=== PATIENT | male | born 1995 | race Caucasian/White ===

== ENCOUNTER 2017-07-30 18:56 | Emergency (ER) | payer BC ==
--- NOTE | 2017-07-30 19:29 | Emergency Department Record ---
History of Present Illness - General Chief complaint: Rash Stated complaint: SORES ALL OVER Time Seen by Provider: 07/30/17 19:25 Source: Patient Mode of Arrival: Ambulatory Limitations: No limitations - History of Present Illness Initial comments: 21 yo male presents to ED with a 4-5 day history of numerous ulcerations to the upper extremities, face, and neck. Patient states the lesions start off as red bumps and then ulcerate, reports approximately 20 lesions total, (2 face, 1 Neck ), others are scattered to the UEs bilaterally. 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 Patient denies health problems at her baseline. MD complaint: Lesion Onset/Timin -: Days(s) Location: Face, Neck, LUE, RUE Severity scale (1-10): 1 Quality: Aching Consistency: Constant Improves with: None Worsens with: None Context: None Associated symptoms: Denies other symptoms Treatments Prior to Arrival: OTC topical medication - Related Data Previous Rx's Medication Instructions Recorded Epinephrine [Epipen] 0.3 mg IM DAILY PRN #1 syr 07/14/16 Clindamycin HCl 300 mg PO Q6H #40 capsule 07/30/17 Allergies Allergy/AdvReac Type Severity Reaction Status Date / Time No Known Drug Allergies Allergy Verified 07/14/16 16:56 Travel Screening - Travel/Exposure Within Last 30 Days Have you traveled within the last 30 days?: No - Travel Symptoms Symptom Screening: None Review of Systems Constitutional: Denies: Chills, Fever, Malaise, Night sweats Eyes: Denies: Eye discharge, Eye pain ENT: Denies: Congestion, Ear pain, Epistaxis Respiratory: Denies: Cough, Dyspnea Cardiovascular: Denies: Chest pain, Dyspnea on exertion Endocrine: Denies: Fatigue, Heat or cold intolerance Gastrointestinal: Denies: Abdominal pain, Nausea, Vomiting Genitourinary: Denies: Incontinence, Retention Musculoskeletal: Denies: Arthralgia, Back pain, Gout, Joint swelling Skin: Reports: Lesions. Denies: Bruising, Change in color, Change in hair/nails Neurological: Denies: Abnormal gait, Confusion, Headache, Seizure Psychiatric: Denies: Anxiety Hematological/Lymphatic: Denies: Anemia, Blood Clots Past Medical History - SOCIAL HISTORY Smoking Status: Current every day smoker - RESPIRATORY Hx Respiratory Disorders: No - CARDIOVASCULAR Hx Cardio Disorders: No Hx Irregular Heartbeat: Yes (just feels it no work up) - NEURO Hx Neuro Disorders: No - GI Hx GI Disorders: No - Hx Genitourinary Disorders: No - ENDOCRINE Hx Endocrine Disorders: No - MUSCULOSKELETAL Hx Musculoskeletal Disorders: No - PSYCH Hx Psych Problems: Yes Hx Anxiety: Yes - HEMATOLOGY/ONCOLOGY Hx Hematology/Oncology Disorders: No Family Medical History Any Significant Family History?: Yes Family Hx Comment (NOT TO BE USED IN PLACE OF ITEMS BELOW): uncle w/brain aneurysm Hx Cancer: Grandparents Physical Exam - General General Appearance: Alert, Oriented x3, Cooperative, No acute distress Limitations: No limitations - Head Head exam: Atraumatic, Normocephalic, Normal inspection Head exam detail: negative: Abrasion, Contusion, Toussaint's sign, General tenderness, Hematoma, Laceration - Eye Eye exam: Normal appearance. negative: Conjunctival injection, Periorbital swelling, Periorbital tenderness, Scleral icterus - ENT Ear exam: negative: Auricular hematoma, Auricular trauma Nasal Exam: negative: Active bleeding, Discharge, Dried blood, Foreign body Mouth exam: negative: Drooling, Laceration, Muffled voice, Tongue elevation - Neck Neck exam: Normal inspection. negative: Meningismus, Tenderness - Respiratory Respiratory exam: Normal lung sounds bilaterally. negative: Rales, Respiratory distress, Rhonchi, Stridor - Cardiovascular Cardiovascular Exam: Regular rate, Normal rhythm, Normal heart sounds - GI/Abdominal GI/Abdominal exam: Soft. negative: Rebound, Rigid, Tenderness - Rectal Rectal exam: Deferred - exam: Deferred - Extremities Extremities exam: Other (Numerous ulcerated lesions c/w possible folliculitis present to the upper extremties bilaterally, (2) face, (1) neck.). negative: Calf tenderness, Pedal edema, Tenderness - Back Back exam: Denies: CVA tenderness (R), CVA tenderness (L) - Neurological Neurological exam: Alert, Normal gait, Oriented X3 - Psychiatric Psychiatric exam: Normal affect, Normal mood - Skin Skin exam: Normal color. negative: Abrasion Type of lesion: negative: abrasion Course Vital Signs 07/30/17 19:17 Temperature 99.2 F Pulse Rate 79 Respiratory 18 Rate Blood Pressure 124/77 Pulse Ox 98 - Reevaluation(s) Reevaluation #1: 07/30/17 19:33 Examination appears c/w bacterial overgrowth to the skin, possible folliculitis. Will trial Clindamycin to prevent new lesions from occurring and instruct the patient to follow-up with his PCP in 3-5 days as directed. Disposition Disposition: Discharge Clinical Impression: Skin lesions, generalized Disposition: Home, Self-Care Condition: (2) Stable Instructions: Folliculitis (ED) Additional Instructions: Return to ED if your symptoms worsen or if you have any concerns. Clindamycin as directed. Follow-up with your family doctor in 3-5 days as directed. Prescriptions: Clindamycin HCl 300 mg PO Q6H #40 capsule Forms: Patient Portal Access Time of Disposition: 19:29 Quality - Quality Measures Quality Measures: N/A - Blood Pressure Screening Does Patient Have Any of the Following: No Blood Pressure Classification: Pre-Hypertensive BP Reading Systolic Measurement: 124 Diastolic Measurement: 77 Screening for High Blood Pressure: < Pre-Hypertensive BP, F/U Documented > [ G8950] Pre-Hypertensive Follow-up Interventions: Referral to alternative/primary care provider.
== END 2017-07-30 19:36 | disposition home or self-care (01) ==
LOC: ER 18:56
DX: L98.8 Other specified disorders of the skin and subcutaneous tissue (principal)
CPT/HCPCS: 99282

== ENCOUNTER 2017-08-13 14:11 | Emergency (ER) | payer BC ==
--- NOTE | 2017-08-13 14:44 | Emergency Department Record ---
History of Present Illness - General Chief complaint: Rash Stated complaint: RASH Time Seen by Provider: 08/13/17 14:36 Source: Patient Mode of Arrival: Ambulatory Limitations: No limitations - History of Present Illness Initial comments: The patient is here for a recheck of a rash. He recently was diagnosed with skin MRSA and did receive oral and topical abx's. Now he is here due to developing itchy red spots on his arms, legs and trunk for 3 days. He denies any new medicines or foods and does not have any new pets. He also denies any trouble swallowing or breathing. MD complaint: Rash Onset/Timin -: Week(s) Consistency: Constant Associated symptoms: Itching Treatments Prior to Arrival: Antibiotic, Other - Related Data Home Medications Medication Instructions Recorded Confirmed Last Taken Mupirocin [Bactroban] 1 apply TOP ASDIR 08/13/17 08/13/17 08/13/17 Previous Rx's Medication Instructions Recorded Epinephrine [Epipen] 0.3 mg IM DAILY PRN #1 syr 07/14/16 Prednisone [Prednisone 20Mg] 20 mg PO ASDIR #15 tab 08/13/17 Allergies Allergy/AdvReac Type Severity Reaction Status Date / Time No Known Drug Allergies Allergy Verified 07/14/16 16:56 Travel Screening - Travel/Exposure Within Last 30 Days Have you traveled within the last 30 days?: No - Travel/Exposure Within Last Year Have you traveled outside the [place] in the last year?: No - Additonal Travel Details Have you been exposed to anyone with a communicable illness?: No - Travel Symptoms Symptom Screening: None Review of Systems Constitutional: Denies: Chills, Fever Eyes: Denies: Eye discharge ENT: Denies: Congestion Respiratory: Denies: Cough, Dyspnea Past Medical History - SOCIAL HISTORY Smoking Status: Current every day smoker Alcohol Use: Occasional Drug Use: None - RESPIRATORY Hx Respiratory Disorders: No - CARDIOVASCULAR Hx Cardio Disorders: No Hx Irregular Heartbeat: Yes (just feels it no work up) - NEURO Hx Neuro Disorders: No - GI Hx GI Disorders: No - Hx Genitourinary Disorders: No - ENDOCRINE Hx Endocrine Disorders: No - MUSCULOSKELETAL Hx Musculoskeletal Disorders: No - PSYCH Hx Psych Problems: Yes Hx Anxiety: Yes - HEMATOLOGY/ONCOLOGY Hx Hematology/Oncology Disorders: No Family Medical History Any Significant Family History?: No Family Hx Comment (NOT TO BE USED IN PLACE OF ITEMS BELOW): uncle w/brain aneurysm Hx Cancer: Grandparents Physical Exam - General General Appearance: Alert, Cooperative, No acute distress - Head Head exam: Atraumatic, Normocephalic, Normal inspection - Eye Eye exam: Normal appearance, PERRL - ENT Throat exam: Normal inspection. negative: Tonsillar erythema, Tonsillar exudate - Neck Neck exam: Normal inspection, Full ROM. negative: Tenderness - Respiratory Respiratory exam: Normal lung sounds bilaterally. negative: Respiratory distress - Cardiovascular Cardiovascular Exam: Regular rate, Normal rhythm, Normal heart sounds - Extremities Extremities exam: Full ROM. negative: Normal inspection (There are erythematous nontender papules to the arms and legs and trunk scattered about. They are very itchy. They do not appear to be MRSA and appear to be bites of some kind.), Tenderness Course Vital Signs 08/13/17 14:18 Temperature 97.5 F L Pulse Rate 66 Respiratory 16 Rate Blood Pressure 127/83 Pulse Ox 100 - Reevaluation(s) Reevaluation #1: I did explain to the patient we will be treating him for an allergix rxn. He is to see his PCP next week for recheck. 08/13/17 14:43 Disposition Disposition: Discharge Clinical Impression: Skin lesions, generalized Disposition: Home, Self-Care Condition: (1) Good Instructions: Acute Rash (ED) Additional Instructions: Please use an OTC antihistamine for itching and take the Prednisone as directed. Please see your PCP next week for recheck. Return to the ER if worse. Prescriptions: Prednisone [Prednisone 20Mg] 20 mg PO ASDIR #15 tab Forms: Patient Portal Access Time of Disposition: 14:44 Quality - Quality Measures Quality Measures: N/A - Blood Pressure Screening View Details: Yes Does Patient Have Any of the Following: No Blood Pressure Classification: Pre-Hypertensive BP Reading Systolic Measurement: 113 Diastolic Measurement: 81 Screening for High Blood Pressure: < Pre-Hypertensive BP, F/U Documented > [ G8950] Pre-Hypertensive Follow-up Interventions: Referral to alternative/primary care provider.
== END 2017-08-13 15:15 | disposition home or self-care (01) ==
LOC: ER 14:11
DX: L98.9 Disorder of the skin and subcutaneous tissue, unspecified (principal); Z86.14 Personal history of Methicillin resistant Staphylococcus aureus infection
CPT/HCPCS: 99282

== ENCOUNTER 2018-08-10 06:46 | Day surgery (SDC) | payer BC ==
[~2018-08-10 06:46] MED LIST: ACETAMINOPHEN 1,000 MG/100 ML BTL IV ONE
[2018-08-10] MEDS ORDERED: PROPOFOL 10 MG/ML VIAL IV ONE (06:47)
[2018-08-10] MEDS ORDERED: BUPIVACAINE 0.25% W/EPI MPF 30ML VIAL IVP ONE (06:47)
[2018-08-10] MEDS ORDERED: DESFLURANE 240 ML BTL INH ONE (06:47)
[2018-08-10] MEDS ORDERED: FENTANYL PF 100MCG/2ML VIAL IV ONE (06:47)
[2018-08-10] MEDS ORDERED: KETOROLAC 30 MG/ML VIAL IVP ONE (06:47)
[2018-08-10] MEDS ORDERED: ONDANSETRON HCL IV 4 MG/2 ML VIAL IVP ONE (06:47)
[2018-08-10] MEDS ORDERED: LIDOCAINE 2% MDV (20MG/ML) 20ML VIAL IV ONE (06:47)
[2018-08-10] MEDS ORDERED: MIDAZOLAM HCL 2MG/2ML VIAL IV ONE (06:47)
[2018-08-10] MEDS ORDERED: DEXAMETHASONE 4 MG/ML 1ML VIAL IVP ONE (06:47)
--- NOTE | 2018-08-11 09:40 | Operative Note ---
DATE OF SURGERY: 08/10/2018 Surgeon: Roland Harris DO PREOPERATIVE DIAGNOSIS: Acromioclavicular arthrosis of the left shoulder. POSTOPERATIVE DIAGNOSIS: Acromioclavicular arthrosis of the left shoulder. OPERATION: Ko procedure of the left shoulder (resection of the left distal clavicle). DESCRIPTION OF PROCEDURE: This 22-year-old male was taken to the operating room and placed in the supine position on the operating room table where general anesthesia was induced. The patient was placed in the beach chair position with all bony prominences well padded and head well secured. The left shoulder was prepped with Hibiclens and draped in the usual sterile fashion. An incision was made in Driss's lines overlying the acromioclavicular joint of the left shoulder, the incision being approximately 1 inch. Dissection carried down through the skin and subcutaneous tissue. Hemostasis obtained with the electrocautery. The periosteum was identified and a "T" type incision was made in the joint capsule and extended in the superior surface of the distal clavicle medially. The flaps of periosteum were anteriorly and posteriorly and the joint was incised to remove the acromioclavicular disc. Oscillating saw was used to resect about 0.75 cm of the distal clavicle, and the wafer of bone was removed. The power rasp was used to further smooth and trim the distal cut clavicle. The wound was irrigated with lactated Ringer's solution and hemostasis was obtained. The remainder of the disrupted acromioclavicular disc was removed. We then reapproximated the joint capsule and periosteum with #1 Vicryl. Subcutaneous tissue closed with 4-0 Vicryl and the skin with a running interlocking 4-0 nylon suture. Marcaine 0.25% with epinephrine was injected into the joint. The wound was then sterilely bandaged and the taken to the recovery room in satisfactory condition. GROSS PATHOLOGY: This patient had disruption of the acromioclavicular joint of the left shoulder. There was also evidence of sprain at the acromioclavicular joint with some disruption of the coracoacromial and coracoclavicular ligaments. [facility]
== END 2018-08-10 10:20 | disposition home or self-care (01) ==
LOC: SUR 06:46
PROVIDERS: ATTEND Orthopaedic Surgery
DX: M19.012 Primary osteoarthritis, left shoulder (principal)
CPT/HCPCS: J1885; J2405